=== PATIENT | female | born 1960 | race Caucasian/White ===

== ENCOUNTER 2016-12-26 15:57 | Emergency (ER) | payer BC ==
--- NOTE | 2016-12-26 18:08 | EDM.PDOC ---
ED HPI GENERAL MEDICAL PROBLEM - General Chief Complaint: Cardiovascular Problem Stated Complaint: HIGH BLOOD PRESSURE Time Seen by Provider: 12/26/16 16:03 Source of Information: Reports: Patient History Limitations: Reports: Respiratory Distress - History of Present Illness INITIAL COMMENTS - FREE TEXT/NARRATIVE: c/o epigastric pain x 5d pt from [place], sees Majo Brewer at 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[employer], 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 ROS: ate pizza for lunch, drank H2O Shoulder Pain Score (Numeric/FACES): 3 - Related Data Allergies Allergy/AdvReac Type Severity Reaction Status Date / Time No Known Allergies Allergy Verified 12/26/16 16:05 Home Meds: Home Meds Omeprazole [Prilosec] 20 mg PO DAILY 03/11/14 [History] atorvaSTATin Calcium [Atorvastatin Calcium] 40 mg PO DAILY 03/11/14 [History] Hydrochlorothiazide 25 mg PO DAILY 12/26/16 [History] hydrOXYzine Pamoate [Hydroxyzine Pamoate] 25 mg PO TID PRN #21 capsule 12/26/16 [Rx] Social & Family History - Tobacco Use Smoking Status *Q: Never Smoker Second Hand Smoke Exposure: No - Caffeine Use Caffeine Use: Reports: Coffee - Alcohol Use Days Per Week of Alcohol Use: 1 Number of Drinks Per Day: 0 Total Drinks Per Week: 0 - Recreational Drug Use Recreational Drug Use: No - Living Situation & Occupation Living situation: Reports: ED ROS GENERAL - Review of Systems Review Of Systems: See Below Constitutional: Reports: No Symptoms HEENT: Reports: No Symptoms Respiratory: Reports: No Symptoms Cardiovascular: Reports: No Symptoms Endocrine: Reports: No Symptoms GI/Abdominal: Reports: Abdominal Pain : Reports: No Symptoms Musculoskeletal: Reports: Back Pain Skin: Reports: No Symptoms Neurological: Reports: Other (lighthead, DUTTON, numb down L arm) Psychiatric: Reports: No Symptoms Hematologic/Lymphatic: Reports: No Symptoms Immunologic: Reports: No Symptoms ED EXAM, GENERAL - Physical Exam Exam: See Below Exam Limited By: No Limitations General Appearance: Alert, WD/WN, Anxious, Other (very anxious) Ears: Normal External Exam, Hearing Grossly Normal Nose: Normal Inspection, Normal Mucosa, No Blood Throat/Mouth: Normal Inspection, Normal Voice, No Airway Compromise Head: Atraumatic, Normocephalic Neck: Normal Inspection, Supple, Non-Tender, Full Range of Motion Respiratory/Chest: No Respiratory Distress, Lungs Clear, Normal Breath Sounds, No Accessory Muscle Use, Chest Non-Tender Cardiovascular: Regular Rate, Rhythm, No Edema, No Gallop, No JVD, No Rub, Other (2/6 ROGER at LSB) GI/Abdominal: Normal Bowel Sounds, Soft, Non-Tender, No Organomegaly, No Distention, No Mass Back Exam: Normal Inspection, Full Range of Motion, NT Extremities: Normal Inspection, Normal Range of Motion, Non-Tender, No Pedal Edema Neurological: Alert, Oriented, CN II-XII Intact, Normal Cognition, No Motor/ Sensory Deficits Psychiatric: Normal Affect, Normal Mood Skin Exam: Warm, Dry, Intact, Normal Color, No Rash Lymphatic: No Adenopathy Course - Vital Signs Last Recorded V/S: Last Vital Signs Temp 36.8 C 12/26/16 18:15 Pulse 71 12/26/16 18:15 Resp 20 12/26/16 18:15 BP 141/90 H 12/26/16 18:15 Pulse Ox 99 12/26/16 18:15 - Orders/Labs/Meds Orders: Active Orders 24 hr Category Date Time Status EKG Documentation Completion [RC] ASDIRECTED Care 12/26/16 17:17 Active EKG 12 Lead [EK] Routine Ther 12/26/16 17:17 Ordered Labs: Laboratory Tests 12/26/16 12/26/16 12/26/16 Range/Units 17:20 17:20 17:20 WBC 9.0 (4.5-12.0) X10-3/uL RBC 4.72 (3.23-5.20) x10(6)uL Hgb 13.9 (11.5-15.5) g/dL Hct 41.4 (30.0-51.3) % MCV 87.9 (80-96) fL MCH 29.6 (27.7-33.6) pg MCHC 33.7 (32.2-35.4) g/dL RDW 13.6 (11.5-15.5) % Plt Count 279 (125-369) X10(3)uL MPV 7.9 (7.4-10.4) fL Neut % (Auto) 61.4 (46-82) % Lymph % (Auto) 25.9 (13-37) % [place] % (Auto) 9.3 (4-12) % Eos % (Auto) 3 (1.0-5.0) % Baso % (Auto) 1 (0-2) % Neut # (Auto) 5.6 (1.6-8.3) # Lymph # (Auto) 2.3 (0.6-5.0) # [place] # (Auto) 0.8 (0.0-1.3) # Eos # (Auto) 0.3 (0.0-0.8) # Baso # (Auto) 0.0 (0.0-0.2) # Sodium 138 (135-145) mmol/L Potassium 4.1 (3.5-5.3) mmol/L Chloride 102 D (100-110) mmol/L Carbon Dioxide 26 (23-29) mmol/L BUN 20 (5-20) mg/dL Creatinine 0.8 (0.6-1.3) mg/dL Est Cr Clr Drug Dosing 64.18 mL/min Estimated GFR (MDRD) > 60 (>60) BUN/Creatinine Ratio 25.0 H (9-20) Glucose 111 (80-116) mg/dL Calcium 9.2 (8.6-10.2) mg/dL Total Bilirubin 0.8 (0.1-1.3) mg/dL AST 31 H (5-27) IU/L ALT 33 H (14-26) IU/L Alkaline Phosphatase 84 (56-112) IU/L Troponin I < 0.01 L (0.02-0.06) NG/ML C-Reactive Protein 0.9 (0.0-1.0) mg/dL Total Protein 8.4 H (6.0-8.0) g/dL Albumin 4.5 (3.5-5.2) g/dL Globulin 3.9 g/dL Albumin/Globulin Ratio 1.2 - Re-Assessments/Exams Free Text/Narrative Re-Assessment/Exam: 12/26/16 19:17 labs reviewed, trop neg, EKG neg, has very mild inc AST/ALT that is old c/w 2y ago, has BUN at ULN c/w mild dehydration Departure - Departure Time of Disposition: 19:18 Disposition: Home, Self-Care 01 Condition: Good Clinical Impression: GERD (gastroesophageal reflux disease), Anxiety Prescriptions: hydrOXYzine Pamoate [Hydroxyzine Pamoate] 25 mg PO TID PRN #21 capsule PRN Reason: Anxiety Referrals: Majo Magana [employer] M[employer]ING OPERATOR [Primary Care Provider] - Forms: ED Department Discharge Additional Instructions: Continue current meds including omeprazole. May take liquid antacids 30 cc every 4 hours as needed for upper abdominal pain. For stress and anxiety, take hydroxyzine 25 mg 1 tab 3 times a day as needed. See your doctor in 2 days as scheduled. Increase fluids. Eat 3 meals a day. Do not skip meals. Get adequate rest even if you do not fall asleep. May work. Return to ED if you are feeling worse. Call your Physician or Return to Emergency Department if: * Your condition worsens in any way. * You develop fever greater than 100.4. * You have vomitting that does not stop with medications. * You have pain that is not controlled with medications. - My Orders Last 24 Hours: My Active Orders 12/26/16 17:17 EKG Documentation Completion [RC] ASDIRECTED EKG 12 Lead [EK] Routine - Assessment/Plan Last 24 Hours: My Active Orders 12/26/16 17:17 EKG Documentation Completion [RC] ASDIRECTED EKG 12 Lead [EK] Routine
[2016-12-26 18:24] VITALS: BP 141/90
[2016-12-26] MEDS ORDERED: ALPRAZolam 0.25 MG Tab PO ONE (19:18)
== END 2016-12-26 19:41 | disposition home or self-care (01) ==
LOC: FB.ED 15:57
DX: K21.9 Gastro-esophageal reflux disease without esophagitis (principal); F41.9 Anxiety disorder, unspecified
CPT/HCPCS: 36415; 80053; 84484; 85025; 86140; 93005; 99283

== ENCOUNTER 2021-03-27 03:09 | Emergency (ER) | payer BC ==
[2021-03-27 03:30] VITALS: BP 127/88; PULSE 95
[2021-03-27] MEDS ORDERED: Acetaminophen/HYDROcodone 325-5 MG Tab PO STA (03:32)
[2021-03-27] MEDS ORDERED: Ketorolac 30 MG/ML SDV IM STA (03:35)
[2021-03-27] MEDS ORDERED: Cyclobenzaprine 10 MG Tab PO STA (03:48)
== END 2021-03-27 05:00 | disposition home or self-care (01) ==
LOC: FB.ED 03:09
DX: S22.060A Wedge compression fracture of T7-T8 vertebra, initial encounter for closed fracture (principal); S20.211A Contusion of right front wall of thorax, initial encounter; Z79.899 Other long term (current) drug therapy; Z79.84 Long term (current) use of oral hypoglycemic drugs; W00.0XXA Fall on same level due to ice and snow, initial encounter
CPT/HCPCS: 71101; 72072; 96372; 99283; A9270; J1885

== ENCOUNTER 2022-11-09 07:02 | Day surgery (SDC) | payer BC ==
[~2022-11-09 07:02] MED LIST: Lactated Ringers 1,000 ML IV PRN; Sodium Chloride 0.9% 10 ML Syringe FLUSH PRN
[2022-11-09] MEDS ORDERED: Midazolam 1 MG/ML 2 ML SDV IV ONE (07:03)
[2022-11-09] MEDS ORDERED: fentaNYL 100 MCG/2 ML SDV IV ONE (07:03)
[2022-11-09] MEDS ORDERED: acetaZOLAMIDE 500 MG Cap.ER PO ONE (09:15)
[2022-11-09 09:30] VITALS: BP 119/72; PULSE 77
== END 2022-11-09 09:43 | disposition home or self-care (01) ==
LOC: FB.SDS 07:02
PROVIDERS: ATTEND Ophthalmology
DX: H26.9 Unspecified cataract (principal); F41.1 Generalized anxiety disorder; E78.5 Hyperlipidemia, unspecified; I10 Essential (primary) hypertension; E03.9 Hypothyroidism, unspecified; E74.39 Other disorders of intestinal carbohydrate absorption; K21.9 Gastro-esophageal reflux disease without esophagitis; Z79.890 Hormone replacement therapy; Z79.82 Long term (current) use of aspirin; Z79.84 Long term (current) use of oral hypoglycemic drugs; Z79.899 Other long term (current) drug therapy
CPT/HCPCS: 00732; 66984; A9270; J2250; J3010; J3490; V2632

== ENCOUNTER → 2022-11-23 | Day surgery (SDC) | payer BC ==
[~2022-11-23] MED LIST changes: +Midazolam 1 MG/ML 2 ML SDV IV ONE; +acetaZOLAMIDE 500 MG Cap.ER PO ONE; +fentaNYL 100 MCG/2 ML SDV IV ONE
[2022-11-23 12:08] VITALS: BP 128/64; PULSE 69
== END ==
LOC: FB.SDS 08:22
PROVIDERS: ATTEND Ophthalmology
DX: H26.9 Unspecified cataract (principal); E78.5 Hyperlipidemia, unspecified; I10 Essential (primary) hypertension; F41.1 Generalized anxiety disorder; K21.9 Gastro-esophageal reflux disease without esophagitis; E03.9 Hypothyroidism, unspecified; Z79.84 Long term (current) use of oral hypoglycemic drugs; Z79.82 Long term (current) use of aspirin; Z79.899 Other long term (current) drug therapy; Z79.890 Hormone replacement therapy
CPT/HCPCS: 00142; 66984; A9270; J2250; J3010; J3490; V2632